=== PATIENT | male | born 1945 | race Hispanic/Latino ===

== ENCOUNTER 2017-01-20 06:47 | Day surgery (SDC) | payer MEDICARE, BC ==
[2016-05-07 11:12] VITALS: BMI 25.8
[2017-01-20] MEDS ORDERED: Simethicone 40 mg/0.6 ml Liquid (30 ml) ONE (07:22)
[2017-01-20] MEDS ORDERED: Propofol 10 mg/ml Inj (20 ML) ONE ×2 (09:15→09:32)
[2017-01-20] MEDS ORDERED: Lidocaine 2% Inj (20ml) ONE (09:15)
[2017-01-20] MEDS ORDERED: Lactated Ringer's 1,000 ML IV SCH (10:15)
[2017-01-20 11:07] VITALS: BP 113/72; PULSE 64; RESP 16; TEMP 97.6; O2SAT 99
== END 2017-01-20 11:52 | disposition home or self-care (01) ==
LOC: ENDO 06:47
PROVIDERS: ATTEND Internal Medicine Gastroenterology
DX: K31.7 Polyp of stomach and duodenum (principal); K29.50 Unspecified chronic gastritis without bleeding; K62.1 Rectal polyp; K44.9 Diaphragmatic hernia without obstruction or gangrene; K57.30 Diverticulosis of large intestine without perforation or abscess without bleeding; K64.8 Other hemorrhoids
CPT/HCPCS: 43251; 45380; 88305; 88312; 88342; J2704; J7040; J7120

== ENCOUNTER 2018-06-25 17:32 | Emergency (ER) | payer MEDICARE, BC ==
[2018-06-25 17:33] VITALS: BMI 25.8
[2018-06-25] MEDS ORDERED: TDAP Vaccine 0.5 mL Syr IM ONE (18:12)
[2018-06-25] MEDS ORDERED: Amoxicillin-Clav 875-125 mg Tab PO STA (18:12)
--- NOTE | 2018-06-25 19:03 | ED PDOC ---
Arrival/HPI - General Chief Complaint: Trauma Time Seen by Provider: 06/25/18 18:12 Historian: Patient - History of Present Illness Narrative History of Present Illness (Text): 06/25/18 19:03 73yr old male presents today s/p trip and fall. pt states around 2pm today the patient missed a step and fell forward hitting his face on the ground. pt denies LOC. pt denies headaches, dizziness or weakness. pt denies neck or back pain. pt states he broke part of his 2 front teeth and was having pain to the jaw. pt states shortly after the fall his jaw felt better. he denies abdominal pain. no n/v/d/c. no other complaints. Symptom Onset: Sudden Symptom Course: Improving Past Medical History - Provider Review Nursing Documentation Reviewed: Yes - Travel History Have you recently traveled outside [place] w/in the past 3 mons?: No - Tetanus Immunization Tetanus Immunization: Unknown - Cardiac Hx Hypertension: Yes - Pulmonary Hx Respiratory Disorders: No - Neurological Hx Paralysis: No - Hematological/Oncological Hx Blood Transfusions: No Hx Blood Transfusion Reaction: No - Musculoskeletal/Rheumatological Hx Musculoskeletal Disorders: No - Psychiatric Hx Emotional Abuse: No Hx Physical Abuse: No Hx Substance Use: No - Anesthesia Hx Anesthesia Reactions: No Hx Malignant Hyperthermia: No - Suicidal Assessment Feels Threatened In Home Enviroment: No Family/Social History - Physician Review Nursing Documentation Reviewed: Yes Family/Social History: Unknown Family HX Smoking Status: Unknown If Ever Smoked Hx Alcohol Use: Yes Frequency of alcohol use: Socially Hx Substance Use: No Allergies/Home Meds Allergies/Adverse Reactions: Allergies No Known Allergies Allergy (Verified 06/25/18 17:58) Home Medications: Home Meds Medication Instructions Recorded Confirmed Amlodipine/Valsartan [Exforge 10 1 tab PO QAM 10/22/14 06/25/18 mg-160 mg] Nebivolol [Bystolic] 5 mg PO QAM 10/22/14 06/25/18 Omeprazole Magnesium [Prilosec Otc] 20 mg PO PRN PRN 05/10/16 01/20/17 Review of Systems - Review of Systems Constitutional: absent: Fatigue, Fevers ENT: Other (dental fracture). absent: Sore Throat, Sinus Congestion Respiratory: absent: SOB, Cough Cardiovascular: absent: Chest Pain, Palpitations Gastrointestinal: absent: Abdominal Pain, Nausea, Vomiting Genitourinary Male: absent: Dysuria, Frequency, Hematuria Musculoskeletal: absent: Arthralgias, Back Pain, Neck Pain Skin: Laceration. absent: Rash, Pruritis Neurological: absent: Headache, Dizziness Psychiatric: absent: Anxiety, Depression Physical Exam Vital Signs Reviewed: Yes Vital Signs Temp Pulse Resp BP Pulse Ox 06/25/18 20:45 97.9 F 72 16 128/90 96 06/25/18 20:42 97.9 F 72 16 128/90 96 06/25/18 17:53 98.1 F 79 18 130/83 99 06/25/18 17:33 98.1 F 79 18 130/83 99 Temperature: Afebrile Blood Pressure: Normal Pulse: Regular Respiratory Rate: Normal Appearance: Positive for: Well-Appearing, Non-Toxic, Comfortable Pain Distress: None Mental Status: Positive for: Alert and Oriented X 3 - Systems Exam Head: Present: Swelling (+ swelling noted to right upper lip) Pupils: Present: PERRL Extroacular Muscles: Present: EOMI Conjunctiva: Present: Normal Ears: Present: Normal, NORMAL TM, Normal Canal Mouth: Present: Moist Mucous Membranes, Normal Tounge. No: Drooling, Trismus, Normal Lips (there is a 0.8cm superifical linear laceration to the mucosa of the right upper lip. no active bleeding. minimal edema. ) Pharnyx: Present: Normal. No: ERYTHEMA, EXUDATE Nose (External): Present: Atraumatic Nose (Internal): Present: Septal Deviation (septal deviation to the left). No: Septal Hematoma Neck: Present: Normal Range of Motion, Trachea Midline. No: MIDLINE TENDERNESS , Paraspinal Tenderness Respiratory/Chest: Present: Clear to Auscultation, Good Air Exchange. No: Respiratory Distress, Accessory Muscle Use Cardiovascular: Present: Regular Rate and Rhythm Abdomen: No: Tenderness, Rebound, Guarding Back: No: Midline Tenderness, Paraspinal Tenderness Upper Extremity: Present: Normal ROM Lower Extremity: Present: Normal ROM Neurological: Present: GCS=15, Speech Normal Skin: Present: Warm, Dry Psychiatric: Present: Alert, Oriented x 3 Medical Decision Making ED Course and Treatment: 06/25/18 19:09 73yr old male presents today with facial injury s/p mechanical fall. Patient is nontoxic well appearing in no distress. Vital signs are stable. Wound irrigated well with high pressure irrigation Tetanus updated augmentin given PO head ct; FINDINGS: BRAIN: Unremarkable. No hemorrhage. No significant white matter disease. No edema. VENTRICLES: Unremarkable. No ventriculomegaly. BONES/JOINTS: Unremarkable. No acute fracture. SOFT TISSUES: Unremarkable. VASCULATURE: Atherosclerosis. SINUSES: Unremarkable as visualized. No acute sinusitis. MASTOID AIR CELLS: Unremarkable as visualized. No mastoid effusion. IMPRESSION: No acute findings. maxillofacial ct; FINDINGS: BONES/JOINTS: Fracture anterior nasal spine with associated soft tissue swelling. SOFT TISSUES: See above. ORBITS: Unremarkable. SINUSES: Unremarkable. No air-fluid levels. IMPRESSION: Fracture anterior nasal spine with associated soft tissue swelling. Laceration repair: 2 sutures placed. Bacitracin and dressing applied Patient was advised to keep the wound clean and dry, apply bacitracin twice daily. Advised to return immediately if signs of infection develop or return if any other concerning symptoms develop Impression: Laceration, lip, dental fracture, head injury, anterior nasal spine fracture Motrin every 6 hours as needed for pain Augmentin; 1 tablet twice daily x 7 days. Follow up with the ENT specialist within the next 2 days Follow up with the Dentist within the next 2 days. Return immediately if signs of infection develop: High fevers, increasing pain, redness, swelling, purulent discharge Followup with primary care physician within the next 2 days Return if any other concerning symptoms develop - RAD Interpretation Radiology Orders: 06/25/18 18:12 HEAD W/O CONTRAST [CT] Stat MAXILLOFACIAL W/O CONTRAST [CT] Stat - Medication Orders Current Medication Orders: Discontinued Medications Amoxicillin/Clavulanate Potassium (Augmentin 875 Mg-125 Mg Tab) 1 tab PO STAT STA PRN Reason: Protocol Stop: 06/25/18 18:13 Last Admin: 06/25/18 18:22 Dose: 1 tab Tetanus/Reduced Diphtheria/Acell Pertussis (Boostrix Vaccine Inj) 0.5 ml IM .ONCE ONE Stop: 06/25/18 18:13 Last Admin: 06/25/18 18:22 Dose: 0.5 ml Procedure: Wound Repair - Procedure Procedure: Wound Repair: laceration lip - Consent Obtained Consent obtained: Verbal - Performed by Performed by: Mid-level Provider - Indications Indication(s):: Laceration - Location Location:: Lip (upper lip) Shape:: Linear Dimensions Length cm: 0.8cm Depth:: Epidermis - Anesthetic Technique Anesthetic Technique: Local Local/Regional Anesthetic:: Lidocaine 1% (1cc) - Debris Debris:: None - Irrigated Irrigated with ml of normal saline: copious amounts of NS using high pressure irrigation - Complexity Complexity:: Simple (one layer) - Wound repair method Sutures:: # (2), Size (5.0), Type (vicryl), Technique (interrupted) - Complications Complications: none - Patient tolerated procedure Patient Tolerated Procedure:: Well Disposition/Present on Arrival - Present on Arrival Any Indicators Present on Arrival: No History of DVT/PE: No History of Uncontrolled Diabetes: No Urinary Catheter: No History of Decub. Ulcer: No History Surgical Site Infection Following: None - Disposition Have Diagnosis and Disposition been Completed?: Yes Diagnosis: Lip laceration, Tooth fractures, Nasal fracture, Head injury Disposition: HOME/ ROUTINE Disposition Time: 20:00 Patient Plan: Discharge Condition: GOOD Discharge Instructions (ExitCare): Nose Fracture, Laceration Repair With Stitches (DC), Minor Head Injury, Minor Head Injury (DC), Nose Fracture (DC), Fractured Tooth (DC) Additional Instructions: Motrin every 6 hours as needed for pain Augmentin; 1 tablet twice daily x 7 days. Follow up with the ENT specialist within the next 2 days Follow up with the Dentist within the next 2 days. Return immediately if signs of infection develop: High fevers, increasing pain, redness, swelling, purulent discharge Followup with primary care physician within the next 2 days Return if any other concerning symptoms develop Prescriptions: Amoxicillin/Clavulanate [Augmentin 875 MG-125 MG] 1 tab PO BID #[id number] tab Referrals: Bk Rm MD [Primary Care Provider] - Follow up with primary Alexandr Acosta DO [Staff Provider] - Follow up with primary Forms: OrderBorder ([place]ian)
[2018-06-25 20:43] VITALS: BP 128/90; PULSE 72; RESP 16; TEMP 97.9; O2SAT 96
--- NOTE | 2018-06-26 06:13 | CT ---
Date of service: 06/25/2018 PROCEDURE: CT MAXILLOFACIAL BONES WITHOUT CONTRAST HISTORY: facial injury/ s/p fall COMPARISON: None available. TECHNIQUE: Contiguous axial CT images of the maxillofacial bones were obtained. Coronal and sagittal reformats were generated. Radiation dose: Total exam DLP = mGy-cm. This CT exam was performed using one or more of the following dose reduction techniques: Automated exposure control, adjustment of the mA and/or kV according to patient size, and/or use of iterative reconstruction technique. FINDINGS: NASAL BONES: Severe nasal septum deviation, ext the left with fracture of the anterior nasal spine. ORBITS: Unremarkable. PARANASAL SINUSES/ MASTOIDS: Clear. MAXILLA: Unremarkable. MANDIBLE/ TEMPOROMANDIBULAR JOINTS: Unremarkable. SKULL BASE: Unremarkable. TEMPORAL BONES: Middle ears and mastoid grossly unremarkable. OTHER FINDINGS: None. IMPRESSION: Severe nasal septum deviation, ext the left with fracture of the anterior nasal spine.
--- NOTE | 2018-06-26 07:28 | CT ---
Date of service: 06/25/2018 PROCEDURE: CT HEAD WITHOUT CONTRAST. HISTORY: head injury COMPARISON: None available. TECHNIQUE: Axial computed tomography images were obtained through the head/brain without intravenous contrast. Radiation dose: Total exam DLP = mGy-cm. This CT exam was performed using one or more of the following dose reduction techniques: Automated exposure control, adjustment of the mA and/or kV according to patient size, and/or use of iterative reconstruction technique. FINDINGS: HEMORRHAGE: No intracranial hemorrhage. BRAIN: No mass effect or edema. Mild chronic microvascular ischemic changes. VENTRICLES: Unremarkable. No hydrocephalus. CALVARIUM: Unremarkable. PARANASAL SINUSES: Unremarkable as visualized. No significant inflammatory changes. MASTOID AIR CELLS: Unremarkable as visualized. No inflammatory changes. OTHER FINDINGS: None. IMPRESSION: No bleed..
== END 2018-06-25 20:45 | disposition home or self-care (01) ==
LOC: ED 17:32
DX: S01.511A Laceration without foreign body of lip, initial encounter (principal); S02.2XXA Fracture of nasal bones, initial encounter for closed fracture; S02.5XXA Fracture of tooth (traumatic), initial encounter for closed fracture; W10.9XXA Fall (on) (from) unspecified stairs and steps, initial encounter; I10 Essential (primary) hypertension; Z23 Encounter for immunization